=== PATIENT | male | born 1985 | race Caucasian/White ===

== ENCOUNTER 2023-03-02 08:07 | Outpatient (CLI) | payer BC, SELFPAY | END 2023-03-02 08:08 | disposition home or self-care (01) | PROVIDERS: PCP Nurse Practitioner Family; Visit Provider Nurse Practitioner Family | DX: Z00.00 Encounter for general adult medical examination without abnormal findings (principal); E78.5 Hyperlipidemia, unspecified; R03.0 Elevated blood-pressure reading, without diagnosis of hypertension; Z13.1 Encounter for screening for diabetes mellitus | CPT/HCPCS: 80061; 82947 ==

== ENCOUNTER 2023-08-16 16:00 | Outpatient (CLI) | payer BC, SELFPAY ==
--- NOTE | 2023-08-16 16:00 | CRLHL7_ITS ---
For Patients: As a result of the Century Cures Act, medical imaging exams and procedure reports are released immediately into your electronic medical record. You may view this report before your referring provider. If you have questions, please contact your health care provider. Indication: Follow up nodule Technique: Noncontrast CT chest Please note that all CT scans at this facility use dose modulation, iterative reconstruction, and/or weight-based dosing when appropriate to reduce radiation dose to as low as reasonably achievable. Comparison: 06/19/2022 Findings: 1.8 millimeter nodule left lower lobe, . Small nodular densities within the right lower lobe measure up to 4.3 millimeters, . Additional nodule adjacent to the fissure noted at the right lower lobe measuring 3.4 millimeters, . Unchanged nodule at the left costophrenic angle, . No infiltrate or edema. No effusion or pneumothorax. Visualized thyroid is normal. Incidental residual thymic tissue in the anterior mediastinum. No adenopathy. The upper abdomen is unremarkable. Impression: Stable pulmonary nodules. No further follow-up indicated. Please note that all CT scans at this facility use dose modulation, iterative reconstruction, and/or weight-based dosing when appropriate to reduce radiation dose to as low as reasonably achievable. Dictated by Josue Roberts MD @ 08/17/2023 12:36:22 PM (Electronically Signed)
== END 2023-08-16 16:01 | disposition home or self-care (01) ==
LOC: CT 16:00
PROVIDERS: PCP Nurse Practitioner Family; Visit Provider Nurse Practitioner Family
DX: R91.8 Other nonspecific abnormal finding of lung field (principal)
CPT/HCPCS: 71250

== ENCOUNTER 2024-03-05 08:08 | Outpatient (CLI) | payer BC, SELFPAY | END 2024-03-05 08:09 | disposition home or self-care (01) | PROVIDERS: PCP Nurse Practitioner Family; Visit Provider Nurse Practitioner Family | DX: E78.5 Hyperlipidemia, unspecified (principal); Z13.1 Encounter for screening for diabetes mellitus | CPT/HCPCS: 80061; 82947 ==

== ENCOUNTER 2024-08-09 09:00 | Outpatient (CLI) | payer BC, SELFPAY | END 2024-08-09 09:01 | disposition home or self-care (01) | LOC: NFLDREF 08-14 23:29 | PROVIDERS: PCP Nurse Practitioner Family; Referring Provider Nurse Practitioner Family; Visit Provider Nurse Practitioner Family | DX: E78.5 Hyperlipidemia, unspecified (principal); Z51.81 Encounter for therapeutic drug level monitoring | CPT/HCPCS: 80061; 80076 ==

== ENCOUNTER 2025-03-13 08:16 | Outpatient (CLI) | payer BC, SELFPAY | END 2025-03-13 08:17 | disposition home or self-care (01) | PROVIDERS: PCP Nurse Practitioner Family; Visit Provider Nurse Practitioner Family | DX: Z00.00 Encounter for general adult medical examination without abnormal findings (principal); E78.5 Hyperlipidemia, unspecified; R53.83 Other fatigue; Z13.21 Encounter for screening for nutritional disorder | CPT/HCPCS: 80050; 80053; 80061; 82306; 84443; 85025 ==